=== PATIENT | male | born 1980 | race Caucasian/White ===

== ENCOUNTER 2020-11-20 15:15 | Emergency (ER) | payer SELFPAY ==
[~2020-11-20] VITALS: Ht 193 cm; Wt 112.7 kg
[2020-11-20 15:30] VITALS: BP 117/78
--- NOTE | 2020-11-20 16:16 | PHYS DOC ---
Past History Past Medical History: No Pertinent History (ROX SANTA APRN) Past Surgical History: No Surgical History (ROX SANTA APRN) Additional Smoking Information: 1/4 PACK/DAY Alcohol Use: None (ORX SANTA APRN) General Adult EDM: Chief Complaint: DENTAL PROBLEM HPI: HPI: Patient is a 40-year-old male who presents with left upper tooth pain. Patient states "was on antibiotics for this back in August and was scheduled to have it pulled but I was released from [facility] prior to getting it pulled". Patient states he does not have a dentist that he sees or a primary care physician. Patient reports taking 800 mg of ibuprofen this morning for pain with no relief. (ROX SANTA APRN) Review of Systems: Review of Systems: Constitutional: Denies fever or chills Eyes: Denies change in visual acuity HENT: Denies nasal congestion or sore throat, left upper dental pain Respiratory: Denies cough or shortness of breath Cardiovascular: Denies chest pain or edema Lymphatic: Denies swollen glands (ROX SANTA APRN) Allergies: Allergies: Allergies Coded Allergies Type Severity Reaction Last Updated Verified No Known Drug Allergies 11/20/20 No (ROX SANTA APRN) Physical Exam: PE: Constitutional: Well developed, well nourished, no acute distress, non-toxic appearance. [] HENT: Normocephalic, atraumatic, bilateral external ears normal, oropharynx moist, no oral exudates. Left upper molar swelling and tenderness Cardiovascular:Heart rate regular rhythm, no murmur [] Lungs & Thorax: Bilateral breath sounds clear to auscultation [] (ROX SANTA APRN) Current Patient Data: Vital Signs: Vital Signs Date Time Temp Pulse Resp B/P (MAP) Pulse Ox O2 Delivery O2 Flow Rate FiO2 11/20/20 15:30 97.9 64 20 117/78 (91) 96 Room Air (ROX SANTA APRN) EKG: EKG: [] (ROX SANTA APRN) Radiology/Procedures: Radiology/Procedures: [] (ROX SANTA APRN) Heart Score: Risk Factors: Risk Factors: DM, Current or recent (<one month) smoker, HTN, HLP, family history of CAD, obesity. Risk Scores: Score 0 - 3: 2.5% MACE over next 6 weeks - Discharge Home Score 4 - 6: 20.3% MACE over next 6 weeks - Admit for Clinical Observation Score 7 - 10: 72.7% MACE over next 6 weeks - Early Invasive Strategies (ROX SANTA APRN) Course & Med Decision Making: Course & Med Decision Making Pertinent Labs and Imaging studies reviewed. (See chart for details) [] Patient is a 40-year-old male who presents with left upper tooth pain. Patient states "was on antibiotics for this back in August and was scheduled to have it pulled but I was released from [facility] prior to getting it pulled". Patient states he does not have a dentist that he sees or a primary care physician. Patient reports taking 800 mg of ibuprofen this morning for pain with no relief. Patient is given hydrocodone in the emergency room. Patient will discharged home. Patient given contact information for a dentist and primary care physician. Patient to take ibuprofen at home for discomfort. (ROX SANTA APRN) Dragon Disclaimer: Dragon Disclaimer: This electronic medical record was generated, in whole or in part, using a voice recognition dictation system. (ROX SANTA APRN) Departure Departure: Impression: Primary Impression: Pain, dental Disposition: 01 DC HOME SELF CARE/HOMELESS Condition: GOOD Referrals: PCP,[facility] (PCP) Patient Instructions: Dental Caries Additional Instructions: You are seen in the emergency room today for dental pain. Please continue taking ibuprofen at home for discomfort. I have included a list for primary care physician and follow-up for dentist. Return to the emergency room with worsening symptoms or concerns. EMERGENCY DEPARTMENT GENERAL DISCHARGE INSTRUCTIONS Thank you for coming to [facility] (ED) today and trusting us with you care. We trust that you had a positivie experience in our Emergency Department. If you wish to speak to the department management, you may call the director at [phone]. YOUR FOLLOW UP INSTRUCTIONS ARE FOLLOWS: 1. Do you have a private Doctor? If you do not have a private doctor, please ask for a resource list of physicians or clinics that may be able to assist you with follow up care. 2. The Emergency Physician has interpreted your x-rays. The X-Ray specialist will also review them. If there is a change in the findings, you will be notified in 48 hours when at all possible. 3. A lab test or culture has been done, your results will be reviewed and you will be notified if you need a change in treatment. ADDITIONAL INSTRUCTIONS AND INFORMATION: 1. Your care today has been supervised by a physician who is specially trained in emergency care. Many problems require more than one evaluation for a complete diagnosis and treatment. We recommend that you schedule your follow up appointment as recommended to ensure complete treatment of you illness or injury. If you are unable to obtain follow up care and continue to have a problem, or if your condition worsens, we recommend that you return to the ED. 2. We are not able to safely determine your condition over the phone nor are we able to give sound medical advice over the phone. For these safety reasons, if you call for medical advice we will ask you to come to the ED for further evaluation. 3. If you have any questions regarding these discharge instructions please call the ED at [phone]. SAFETY INFORMATION: In the interest of safety, wellness, and injury prevention; we encourage you to wear your sealbelt, if you smoke; quite smoking, and we encourage family to use a protective helmet for bicycling and other sporting events that present an increased risk for head injury. IF YOUR SYMPTOMS WORSEN OR NEW SYMPTOMS DEVELOP, OR YOU HAVE CONCERNS ABOUT YOUR CONDITION; OR IF YOUR CONDITION WORSENS WHILE YOU ARE WAITING FOR YOUR FOLLOW UP APPOINTMENT; EITHER CONTACT YOUR PRIMARY CARE DOCTOR, THE PHYSICIAN WHOSE NAME AND NUMBER YOU WERE GIVEN, OR RETURN TO THE ED IMMEDIATELY. Scripts Hydrocodone Bit/Acetaminophen (HYDROCODONE-APAP 5-325 ) 1 Each Tablet 1 TAB PO PRN Q6HRS PRN for PAIN for 2 Days, #8 TAB 0 Refills Prov: ROX SANTA APRN 11/20/20 Amoxicillin/Potassium Clav (AMOX TR-K CLV 875-125 MG TAB) 1 Each Tablet 1 TAB PO BID for infection for 7 Days, #14 TAB Prov: ROX SANTA APRN 11/20/20 Attending Signature Attending Signature I have reviewed the PA/FORMULA WEIGHER's note and plan of care. I was available for consultation as needed during the patient's visit in the emergency department. I agree with the clinical impression, plan, and disposition. (CYRIL GOMEZ DO) ROX SANTA APRN Nov 20, 2020 16:16 CYRIL GOMEZ DO Nov 21, 2020 00:30
[2020-11-20] MEDS ORDERED: HYDR-2155 PO (16:20)
[2020-11-20] MEDS ORDERED: AMOX1TAB11 PO (16:20)
[2020-11-20] MEDS ORDERED: HYDROcodone/APAP 5/325MG 1 TAB TABLET PO ONE (16:30)
== END 2020-11-20 16:40 | disposition home or self-care (01) ==
LOC: ER 15:15
DX: K08.89 Other specified disorders of teeth and supporting structures (principal)
CPT/HCPCS: 99283